=== PATIENT | female | born 1990 | race Caucasian/White ===

== ENCOUNTER 2022-06-06 11:30 | Emergency (ER) | payer BC ==
[2022-06-06] MEDS ORDERED: Acetaminophen 500 MG TAB ONE (12:26)
[2022-06-06] MEDS ORDERED: Acetaminophen 325 MG TAB ONE (12:29)
[2022-06-06 13:29] LABS: SARS-CoV-2 NAA Rapid Test Not Detected (NotDetected)
[2022-06-06] MEDS ORDERED: Dexamethasone 10 MG/ML VIAL ONE (13:33)
[2022-06-06] MEDS ORDERED: Bicillin LA 1.2 MILLION UNITS/2 ML SYRINGE IM SCH (13:45)
== END 2022-06-06 14:04 | disposition home or self-care (01) ==
LOC: CSHERS 11:30
DX: J02.0 Streptococcal pharyngitis (principal); Z20.822 Contact with and (suspected) exposure to COVID-19
CPT/HCPCS: 87430; 96372; 99283; J0561; J1100

== ENCOUNTER 2023-02-19 18:02 | Emergency (ER) | payer BC ==
[2023-02-19 19:52] LABS: #Basophils 0.1 10x3/uL (0.0-0.2); #Eosinphils 0.2 10x3/uL (0.0-0.5); #Monocytes 0.5 10x3/uL (0.0-1.1); #Neutrophils 4.6 10x3/uL (1.5-8.4); %Eosinophils 1.8 % (0.0-6.0); %Lymphocytes 39.6 % (18.0-47.0); Hemoglobin 13.4 g/dL (12.0-15.5); Mean Corpuscular HGB CONC 33.5 g/dL (32.0-36.0); Mean Corpuscular Hemoglobin 31.2 pg (27.0-33.0); Mean Platelet Volume 11.1 fl (7.4-10.4); Platelet Count 300 10x3/uL (150-450); RBC Distribution Width 13.1 % (11.5-14.5)
[2023-02-19 20:07] LABS: ALT (SGPT) 19 U/L (8-55); AST (SGOT) 18 U/L (5-34); Albumin 4.4 g/dL (3.5-5.0); Alkaline Phosphatase 60 U/L (40-110); Anion Gap 15 mmol/L (10-20); BUN (Urea Nitrogen) 10 mg/dL (7.0-18.7); Bilirubin, Total 0.4 mg/dL (0.2-1.2); Calc. Creatinine Clearance 0 mL/min (70-130); Calcium 9.5 mg/dL (7.8-10.44); Carbon Dioxide 18 mmol/L (22-29); Chloride 106 mmol/L (98-107); Estimated GFR 96; Globulin 3.4 g/dL (2.4-3.5); Glucose 87 mg/dL (70-105); Potassium 3.6 mmol/L (3.5-5.1); Protein, Total 7.8 g/dL (6.0-8.3); Sodium 135 mmol/L (136-145)
[2023-02-19] MEDS ORDERED: guaiFENesin/Codeine Phosphate 100 mg/10 mg 5 ml UD Cup ONE (20:45)
[2023-02-19 23:01] LABS: SARS-CoV-2 NAA Rapid Test Not Detected (NotDetected)
[2023-02-19 23:10] LABS: Lactic Acid 1.6 mmol/L (0.5-2.2)
== END 2023-02-19 23:30 | disposition home or self-care (01) ==
LOC: CSHERS 18:02
DX: B34.9 Viral infection, unspecified (principal); R05.9 Cough, unspecified; R79.9 Abnormal finding of blood chemistry, unspecified; Z20.822 Contact with and (suspected) exposure to COVID-19
CPT/HCPCS: 36415; 71045; 80053; 83605; 85025; 87040